=== PATIENT | male | born 1960 | race Caucasian/White ===

== ENCOUNTER 2016-12-27 05:32 | Day surgery (SDC) | payer MEDICARE ==
--- NOTE | 2016-12-26 12:14 | PCM.ANEPRE ---
Anesthesia Pre-Op Review Reason for Review: ANTONY +; STOP BANG 05/23 Anesthesia Recommendations: Proceed with Procedure Additional Comments pt scheduled for toe amputation with hx of DM, Renal insuffency, hx of A-fib,, ANTONY and mild Aortic stenosis. 05/23 stop bang and patient will not be getting his cpap machine until the . Consider ANTONY protocol. ultimate decision to proceed with low risk surgery per anesthesiologist. Max Lake MD Dec 26, 2016 12:14
[2016-12-27] VITALS (18 sets, daily range): BP systolic 109–176; BP diastolic 65–103; PULSE 57–142; RESP 17–26; O2SAT 90–98
[~2016-12-27] VITALS: Ht 175.3 cm; Wt 127.6 kg
[~2016-12-27 05:32] MED LIST: ALBU8.5H2 IH; ASPI-973 PO; CYA1000I IM; DOXY100T2 PO; HYDR-4003 PO; LIP40 PO; LISI1TAB11 PO; METF1000 PO
[2016-12-27] MEDS ORDERED: Lactated Ringer's 1,000 ML IV ONE ×3 (05:36→09:45)
[2016-12-27] MEDS ORDERED: CeFAZolin Inj 3 GM in IV Premix 1 EACH IV ONE (06:00)
--- NOTE | 2016-12-27 07:20 | PCM.HPANE ---
Patient Data Date of Service: Dec 27, 2016 Surgeon Admitting Provider: Attending Provider:Tierney Caban DPM Primary Care Physician:Other,Physician Other Provider:Tae Doty Anesthesia Reason for Visit Chronic Ulcer With Hallux Deformities Right Foot Ht/WT & BMI Height (Feet): 5 Height (Inches): 9 Weight (Kilograms): 127.6 Body Mass Index 41.00 Allergies Coded Allergies: No Known Allergies (Verified Allergy, Unknown, 12/23/16) Past Anesthesia History Anesthesia History: Positive for:: Anesthesia Reactions (COLONOSCOPY- HAD TO BE AWAKENED MID-PROCEDURE ??RESP. PROBLEM??), Denies:: Malignant Hyperthermia Diabetes History Hx Diabetes?: Yes Type of Diabetes: Type II Glycemic Control: Oral Medication Current Bedside Blood Glucose: 100 MRSA MRSA: No Medications Blood Thinner: Aspirin Last Dose Blood Thinner: Dec 22, 2016 Hypertension Medication: Yes (LISINOPRIL/HCTZ) Home Meds Incl Beta Nessa: No Reported Medications Doxycycline Hyclate 100 Mg [id number] Mg PO DAILY START 12/27/16 12/23/16 Hydrocodone-Acetaminophen 5-325 mg 1 Each Tablet1-2 Tablet PO Q6H PRN For Pain Ref 0 POSTOP 12/23/16 Cyanocobalamin (Cyanocobalamin Injection)1,000 Mcg/1 Ml Vial1,000 Mcg IM Q4 WEEKS 12/23/16 Aspirin 81 Mg [id number] Mg PO DAILY Ref 0 12/23/16 Metformin (Glucophage)1,000 Mg Tablet1,000 Mg PO BID Ref 0 12/23/16 Albuterol HFA (Proair HFA)8.5 Gm Hfa.aer.ad2 Puffs IH Q6 PRN For Shortness of Breath #1 INHALER 09/12/14 Lisinopril / HCTZ 20-25 mg 1 Each Tablet1 Each PO BID 30 Days Ref 0 09/12/14 Atorvastatin (Lipitor)40 Mg Fciouv01 Mg PO DAILYWD 30 Days Ref 0 09/12/14 Discontinued Reported Medications Metformin 1,000 Mg Tablet1,000 Mg PO DAILYWM 30 Days Ref 0 09/12/14 Levofloxacin 500 Mg [id number] Mg PO Q24 10 Days 09/12/14 Sitagliptin Phos (Januvia)100 Mg Pxsrrg028 Mg PO QPM 30 Days Ref 0 09/12/14 History History of ENT Problems?: Yes HEENT History: Positive for:: Dysphagia (S/P EGD W/ BALLOON DILATION FOR STRICTURE) Hx of Heart Problems?: Yes Cardiovascular History: Positive for:: Atrial Fibrillation (02/2016-found incidentally-converted spontaneously w/o drugs) Heart Murmur (PCP REPORTED ECHO 04/2016 WNL EXCEPT FOR MILD ) Hypertension (HYPERLIPIDEMIA) Valvular Heart Disease (MILD ) Denies:: Cardiac Surgery Chest Pain Congestive Heart Failure Edema Irregular Heartbeat Pacemaker Thrombophlebitis Hx of Respiratory Problem?: Yes Respiratory History: Positive for:: Asthma (MILD INTERMITTANT) Use of C-PAP Machine (ANTONY+ RECENT SLEEP STUDY CPAP TRIAL SCHEDULED FOR ) Use of Inhalers / NEBS Denies:: Pneumonia Other History/Comment smoker Hx Neurologic Problems?: Yes Other Neurological Pertinent: DIABETIC/PERIPHERAL NEUROPATHY Hx of GI Problems?: No Hx of Problems?: Yes Genitourinary History: Denies:: HX of Hemodialysis (HX CHRONIC RENAL INSUFFICIENCY) Male Hx: Denies:: Prostate Problems Scrotal Mass Testicular Surgery Skin History: Positive for:: Pressure Ulcers (CHRONIC ULCER W/ HALLUX DEFORMITY RT FOOT=CURRENT PROBLEM) Denies:: History Skin Disorders? (ONYCHODYSTROPHY LT GTRAT TOE ULCER- HEALING) Hx Musculoskeletal Problems?: Yes Musculoskeletal History: Positive for:: Musculoskeletal Trauma (S/P AMP RT 2ND TOE,RT GREAT TOE DEBRIDEMENT,DUPUYTREN'S RELEASE LT HAND) Hx of Psycho/Social Problems?: No Psycho Social History: Denies:: Anxiety Bipolar Disorder Hx Depression Suicide Attempt Hx Any Other Health Problems?: Yes Other History: Positive for:: Hospitalization (CELLULITIS) Denies:: Cancer Endocrine Disease Thyroid Disease History Blood Transfusions: Denies:: Blood Transfusions Hx Diabetes: YesBedside Blood Glucose: 100 Hx Alcohol Use: No (QUIT 2010)Hx Substance Use: No Smoking Status: Current Every Day Smoker Have You Smoked inLast 12 mo: YesApprox How Many Cigarettes/day: 1/2 PPD X 30YRS Stop/Bang S-Snoring: Do You Snore Loudly: Yes T-Tired: feel tired, fatigued: Yes O-Obsered: Observed not breath: Yes P-Blood Pressure: treated: Yes B- Body Mass Index > 35 kg/m2: Yes A- Age over 50: Yes N- Neck Large Circumference: Yes G- Gender Male: Yes ANTONY Total Score: 8 Risk Assessment Category Category 1A: Patient has history of documented sleep apnea, and HAS NOT received any narcotic, sedative or anesthesia administration during this stay. Category 1B: Patient has history of documented sleep apnea, and HAS received any narcotic , sedative or anesthesia administration during this stay Category 2: Patient has SUSPECTED Obstructive Sleep Apnea, and HAS received any narcotic , sedative or anesthesia administration during this stay. Category 3: Patient has SUSPECTED Obstructive Sleep Apnea and HAS NOT received narcotic, sedative or anesthesia administration during this stay. Category 4: Outpatient in Procedural Areas with known sleep apnea or who screen positive for High Risk via the STOP/BANG questionnaire. Exam Exam Vital Signs Vital Signs Date Time Temp Pulse Resp B/P Pulse Ox O2 Delivery O2 Flow Rate FiO2 12/27/16 06:10 35.6 67 20 136/86 93 Room Air General Appearance: Alert, Oriented X3 HEENT/AIRWAY: MP 3 Lungs: Clear to Auscultation Heart: Regular Rate/Rhythm, Murmur (2/6 HUAN) Meds/Labs/Diagnostics Admission Meds Current Medications Lactated Ringer's (Lr) 1,000 ml @ ud STK-MED ONCE IV Last administered on 12/27t 05:36; Start 12/27/16 at 05:36; Stop 12/27/16 at 05:37; Status DC Bedside Blood Glucose: 100 Plan Impression Patient chart reviewed, patient interviewed and anesthestic plan with risks, benefits, and alternatives discussed, and informed consent obtained. NPO Status: 1700 12/26/16 ASA Physical Status: ASA3 Severe Disease Anesthetic Plan: MAC Bene/Risks/Altern/Consents: Yes HP Complete Prior to Induction: Yes Jordy Cuevas MD Dec 27, 2016 07:20
[2016-12-27] MEDS ORDERED: Lactated Ringer's 500 ML IV PRN (07:21)
[2016-12-27] MEDS ORDERED: Lactated Ringer's 1,000 ML IV SCH (07:21)
[2016-12-27] MEDS ORDERED: HYDROmorphone 1 mg/mL Inj IVPUSH PRN (07:25)
[2016-12-27] MEDS ORDERED: Atropine 0.4 mg/mL Inj IVPUSH PRN (07:25)
[2016-12-27] MEDS ORDERED: hydrALAZINE 20 mg/mL Inj IVPUSH PRN (07:25)
[2016-12-27] MEDS ORDERED: Labetalol 5 mg/mL 4 mL Inj IV PRN (07:25)
[2016-12-27] MEDS ORDERED: MetoCLOpramide 5 mg/mL 2 mL Inj IVPUSH PRN (07:25)
[2016-12-27] MEDS ORDERED: Phenylephrine 10,000 mCg/mL Inj IVPUSH PRN (07:25)
[2016-12-27] MEDS ORDERED: EPHEDrine Sulfate 50 mg/mL Inj IVPUSH PRN (07:25)
[2016-12-27] MEDS ORDERED: Ondansetron 2 mg/mL 2 mL Inj IVPUSH PRN ×2 (07:25→10:40)
[2016-12-27] MEDS ORDERED: fentaNYL-PF 50 mCg/mL 2 mL Inj IVPUSH PRN (07:25)
[2016-12-27] MEDS ORDERED: MeTOProlol 1 mg/mL 5 mL Inj ONE (08:02)
--- NOTE | 2016-12-27 08:58 | PCM.ANEPRE ---
Anesthesia Pre-Op Review Reason for Review: Case cancelled in OR prior to start Anesthesia Recommendations: Proceed with Procedure Additional Comments 56y/o M with history of atrial fibrillation (unknown whether paroxysmal versus permanent), morbid obesity, DM2, probable ANTONY that was to have R great toe amputation for chronic ulcer today. This was cancelled in the OR before surgery was started secondary to atrial fibrillation with rapid ventricular response. After self transferring to the OR bed from the [facility] the patient was hooked up to the monitor which showed A-fib rate 140s. The patient reports that he used albuterol just prior to the OR, he had also used albuterol 30 minutes prior to this. I believe the combination of the B2 agonist along with self transferring in this morbidly obese patient kicked him into a-fib RVR. His pre-op vitals were not notable for elevated HR, a telemetry strip was not printed pre-op, but on my assessment he had a regular rhythm with HR 70s. He does not take any AV- cornelia blockers. In the OR, he was beta-blocked with metoprolol 5mg increments to total of 15mg IV. This failed to achieve rate or rhythm control. He remained normo to hypertensive with no chest pain, dyspnea, or light headedness. ECG showed A-fib rate 140s with no ST segment abnormalities. Labs are pending. I spoke with the admitting hospitalist for the yellow team to consider admission for rate control. At 915 I was notified that the patient converted to sinus rhythm 50s-60s. Dr. Caban spoke with his sister, and it sounds as if the patient excessively uses albuterol for "shortness of breath". I question whether he has had PFTs to demonstrate that he has a reversible component of airflow obstruction to merit its use though he is a half-way active smoker, surely it's utility should be weighed against it being a potential trigger for this arrhythmia. He demonstrated that he does not wheeze with IV beta blockade, so I question whether he should be betablocked at baseline, his degree of hypertension suggests that he could tolerate it. Jordy Erwin MD Dec 27, 2016 08:58
[2016-12-27 09:05] LABS: BASOPHILS % (AUTO) 0.6 % (0-3); EOSINOPHILS % (AUTO) 4.5 % (0-5); MONOCYTES % (AUTO) 8.7 % (4-12); Mean Corpuscular Hemoglobin 31.3 pg (27.0-35.0); Mean Corpuscular Volume 96.3 fL (81-100); NEUTROPHILS % (AUTO) 65.6 % (40-74); Platelet Count 143 bil/L (150-400)
--- NOTE | 2016-12-27 09:21 | PCM.ANEP1 ---
Post Anesthesia Phase 1 PACU Phase 1 Assessment Date of Service: Dec 27, 2016 Vital Signs Vital Signs Date Time Temp Pulse Resp B/P Pulse Ox O2 Delivery O2 Flow Rate FiO2 12/27/16 08:45 76 22 131/87 98 Simple Mask 8 12/27/16 08:35 74 17 109/85 96 Simple Mask 8 12/27/16 08:30 82 19 139/103 97 Simple Mask 8 12/27/16 08:20 88 24 143/100 98 Simple Mask 8 12/27/16 08:11 141 24 122/101 98 Simple Mask 8 12/27/16 08:10 141 26 122/101 98 Simple Mask 8 12/27/16 08:05 142 18 149/98 98 Simple Mask 8 12/27/16 08:03 36.6 130 22 148/98 98 Simple Mask 8 12/27/16 06:10 35.6 67 20 136/86 93 Room Air Level of Alertness: Awake, talking ZEPEDA's with Equal Strength: Yes Pain: No Nausea or Vomiting: No Oxygen Delivery: Nasal Cannula Lungs: Clear to Auscultation Jordy Cuevas MD Dec 27, 2016 09:21
--- NOTE | 2016-12-27 09:21 | PCM.ANEP2 ---
Post Anesthesia Evaluation ASA/CMS Post Anesthesia Date of Service: Dec 27, 2016 VS in Patient's Normal Range?: Yes Resp Stable; Airway Patent?: Yes CV Function & Hydration Stable: Yes Mental Status Recovered?: Yes Pain control Satisfactory?: Yes N/V Control Satisfactory?: Yes Jordy Cuevas MD Dec 27, 2016 09:21
[2016-12-27 10:12] LABS: Creatine Kinase 118 U/L (21-232); Magnesium 1.3 mg/dL (1.6-2.6); TROPONIN T < 0.010 ug/L (0.0-0.011)
[2016-12-27] MEDS ORDERED: Polyethylene Glycol (PEG) 17 Gm Powder PO PRN (10:40)
[2016-12-27] MEDS ORDERED: Alum-Mag Hydrox-Simeth 30 mL Suspension PO PRN (10:40)
[2016-12-27] MEDS ORDERED: Heparin 5,000 Unit/mL Inj SUBQ SCH (10:40)
--- NOTE | 2017-01-23 08:38 | PCM.PROC ---
Procedure Note Date of Service: Dec 27, 2016 Pre Procedure Diagnosis: Chronic osteomyelitis, right hallux. Post Procedure Diagnosis: No procedure Procedure: No procedure Provider and Ethyl Blender: Tierney Caban D.P.M. Indication for Procedure: Chronic ulcerating osteomyelitis, right hallux. Findings: Patient experience refractory atrial fibrillation prior to sedation being initiated. It seemed to coincide with the use of his inhaler, but did not resolve prior to case start and the procedure was aborted. The patient was discharged later in the day to follow up with his manager latin. Post Procedure Plan: Although cardiology clearance was obtained prior to the procedure, it appears that the patient is overusing his inhaler and causing atrial fibrillation. It is important to get this issue resolved prior to attempting this procedure again. Tierney Caban DPM Jan 23, 2017 08:38
== END 2016-12-27 23:59 | disposition home or self-care (01) ==
LOC: SAS 05:32
PROVIDERS: ATTEND Podiatrist
DX: M86.671 Other chronic osteomyelitis, right ankle and foot (principal); Z53.09 Procedure and treatment not carried out because of other contraindication; I48.92 Unspecified atrial flutter; L97.514 Non-pressure chronic ulcer of other part of right foot with necrosis of bone; M20.61 Acquired deformities of toe(s), unspecified, right foot; E11.9 Type 2 diabetes mellitus without complications; Z79.84 Long term (current) use of oral hypoglycemic drugs; J45.20 Mild intermittent asthma, uncomplicated
CPT/HCPCS: 28825; 36415; 80048; 82040; 82247; 82306; 82550; 82553; 83735; 83880; 84080; 84439; 84443; 84450; 84460; 84484; 85025; 93005; J7120

== ENCOUNTER → 2017-05-02 | Day surgery (SDC) | payer MEDICARE ==
[~2017-05-02] VITALS: Ht 175.3 cm; Wt 126.3 kg
[~2017-05-02] MED LIST changes: -ALBU8.5H2 IH; +ALBU8.5H2 INHALATION; -ASPI-973 PO; -CYA1000I IM; +CeFAZolin Inj 3 GM in IV Premix 1 EACH IV ONE; +DOXY100C2 PO; -DOXY100T2 PO; +Dexamethasone 4 mg/mL Inj IVPUSH PRN; +EPHEDrine Sulfate 50 mg/mL Inj IVPUSH PRN; +Esmolol 10,000 mCg/mL 10 mL Inj ONE; +HYDROmorphone 1 mg/mL Inj IVPUSH PRN; -LIP40 PO; +LISI10TA PO; -LISI1TAB11 PO; +LOVA40TA PO; +Lactated Ringer's 1,000 ML IV SCH; +Lactated Ringer's 500 ML IV PRN; +Lidocaine 1%-Epi 1:100,000 20 mL Inj NERVEBLOCK ONE; +Lidocaine PF 1% 30 mL Inj INJ ONE; +METO25TA6 PO; +MetoCLOpramide 5 mg/mL 2 mL Inj IVPUSH PRN; +Ondansetron 2 mg/mL 2 mL Inj IVPUSH PRN; +Phenylephrine 10,000 mCg/mL Inj IVPUSH PRN; +fentaNYL-PF 50 mCg/mL 2 mL Inj IVPUSH PRN; +fentaNYL-PF 50 mCg/mL 2 mL Inj ONE; +oxyCODONE-Acetamin 5-325 mg Tablet PO PRN
[2017-05-02] MEDS: Lactated Ringer's 1,000 ML IV SCH ×2 (05:42→09:04)
[2017-05-02 07:37] VITALS: BP 125/79; PULSE 95; RESP 18; O2SAT 95
--- NOTE | 2017-05-02 08:13 | PCM.HPANE ---
Patient Data Date of Service: May 02, 2017 Surgeon Admitting Provider: Attending Provider:Tierney Caban DPM Primary Care Physician:Wilma Other Provider:Tae Doty Anesthesia Reason for Visit Chronic Ulcer Of Great Toe Of Right Foot Ht/WT & BMI Height (Feet): 5 Height (Inches): 9.00 Weight (Kilograms): 126.3 Body Mass Index 41.00 Allergies Coded Allergies: No Known Allergies (Verified Allergy, Unknown, 12/23/16) Past Anesthesia History Anesthesia History: Positive for:: Anesthesia Reactions (sedation for colonoscopy), Denies:: Abnormal Airway, Difficult Intubation, Malignant Hyperthermia Diabetes History Hx Diabetes?: Yes Type of Diabetes: Type II Glycemic Control: Oral Medication Current Bedside Blood Glucose: 132 MRSA MRSA: No Medications Blood Thinner: Aspirin Hypertension Medication: Yes Home Meds Incl Beta Nessa: Yes (Metoprolol 25mg) Date Beta Nessa Taken: May 02, 2017 Time Beta Nessa Taken: 0600 Previous Beta Nessa Dose >24: Previous Dose <24 Hours Reported Medications Metoprolol Tartrate 25 Mg Qypawt07 Mg PO DAILY 30 Days Ref 0 04/26/17 Metformin (Glucophage)1,000 Mg Tablet1,000 Mg PO BID Ref 0 04/25/17 Lovastatin 40 Mg Dlvqtw70 Mg PO HS #30 TABLET Ref 0 04/25/17 Lisinopril 10 Mg Jqazjt33 Mg PO DAILY 30 Days Ref 0 04/25/17 Hydrocodone-Acetaminophen 5-325 mg 1 Each Tablet1-2 Tablet PO Q6H PRN For Pain Ref 0 04/25/17 Doxycycline Hyclate 100 Mg Ivshyxl706 Mg PO DAILY 04/25/17 Albuterol HFA (Proair HFA)8.5 Gm Hfa.aer.ad2 Puffs INHALATION Q4H PRN For Shortness of Breath #1 INHALER 04/25/17 Discontinued Reported Medications [metoprolol] No Conflict Check25 Mg DAILY 04/26/17 Doxycycline Hyclate 100 Mg Khunpg821 Mg PO DAILY START 12/27/16 12/23/16 Hydrocodone-Acetaminophen 5-325 mg 1 Each Tablet1-2 Tablet PO Q6H PRN For Pain Ref 0 POSTOP 12/23/16 Cyanocobalamin (Cyanocobalamin Injection)1,000 Mcg/1 Ml Vial1,000 Mcg IM Q4 WEEKS 12/23/16 Aspirin 81 Mg Zukrrc16 Mg PO DAILY Ref 0 12/23/16 Metformin (Glucophage)1,000 Mg Tablet1,000 Mg PO BID Ref 0 12/23/16 Albuterol HFA (Proair HFA)8.5 Gm Hfa.aer.ad2 Puffs IH Q6 PRN For Shortness of Breath #1 INHALER 09/12/14 Lisinopril / HCTZ 20-25 mg 1 Each Tablet1 Each PO BID 30 Days Ref 0 09/12/14 Atorvastatin (Lipitor)40 Mg Fjngyw13 Mg PO DAILYWD 30 Days Ref 0 09/12/14 History History of ENT Problems?: Yes HEENT History: Positive for:: Dysphagia (hx of esoph stricture with balloon dilatation-resolved) Denies:: Abnormal Airway Cataracts Difficult Intubation Glaucoma Hearing Problem Sinus Problem TMJ Denture Type: None Teeth Condition: Missing Teeth (all upper) Hx of Heart Problems?: Yes Cardiovascular History: Positive for:: Atrial Fibrillation (02/2016-found incidentally-converted spontaneously w/o drugs, denies symptoms) Heart Murmur (PCP REPORTED ECHO 04/2016 WNL EXCEPT FOR MILD ) Hypertension Valvular Heart Disease (MILD ) Denies:: Cardiac Surgery Chest Pain Congestive Heart Failure Edema Irregular Heartbeat Pacemaker Thrombophlebitis Hx of Respiratory Problem?: Yes Respiratory History: Positive for:: Asthma (mild, intermittent) Use of C-PAP Machine Use of Inhalers / NEBS Denies:: COPD Oxygen Administration Pneumonia Tuberculosis Hx Neurologic Problems?: Yes Neurological History: Denies:: CVA Dizziness Headaches Multiple Sclerosis Parkinson's Disease Seizures TIA 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 Hx Musculoskeletal Problems?: Yes Musculoskeletal History: Positive for:: Musculoskeletal Trauma (chronic diabetic ulcers current admission problem) Denies:: Degenerative Joint Fibromyalgia Joint Replacement Myasthenia Gravis Osteoarthritis Rheumatoid Arthritis Systemic Lupus Hx of Psycho/Social Problems?: No Psycho Social History: Denies:: Anxiety Bipolar Disorder Hx Depression Suicide Attempt Hx Surgeries?: Yes (Rt toe 2nd amputation,RT GREAT TOE DEBRIDEMENT,LT HAND DUPUYTRENS RELEASE,E) Hx Any Other Health Problems?: Yes Other History: Positive for:: Hospitalization (CELLULITIS) Denies:: Cancer Endocrine Disease Thyroid Disease History Blood Transfusions: Positive for:: Accept Blood Products? Denies:: Blood Transfusions Hx Diabetes: YesBedside Blood Glucose: 132 Hx Alcohol Use: No (former)Hx Substance Use: No Smoking Status: Current Every Day Smoker Have You Smoked inLast 12 mo: Yes (1/2 pack ) Stop/Bang Treated for Sleep Apnea?: Yes Do You Have a CPAP Machine?: Yes P-Blood Pressure: treated: Yes B- Body Mass Index > 35 kg/m2: Yes A- Age over 50: Yes N- Neck Large Circumference: Yes G- Gender Male: Yes ANTONY Risk Assessment: High Risk, =/>3 Yes Risk Assessment Category Category 1A: Patient has history of documented sleep apnea, and HAS NOT received any narcotic, sedative or anesthesia administration during this stay. Category 1B: Patient has history of documented sleep apnea, and HAS received any narcotic , sedative or anesthesia administration during this stay Category 2: Patient has SUSPECTED Obstructive Sleep Apnea, and HAS received any narcotic , sedative or anesthesia administration during this stay. Category 3: Patient has SUSPECTED Obstructive Sleep Apnea and HAS NOT received narcotic, sedative or anesthesia administration during this stay. Category 4: Outpatient in Procedural Areas with known sleep apnea or who screen positive for High Risk via the STOP/BANG questionnaire. Exam Exam Vital Signs Vital Signs Date Time Temp Pulse Resp B/P Pulse Ox O2 Delivery O2 Flow Rate FiO2 05/02/17 07:41 CPAP/BIPAP 05/02/17 07:37 36.2 95 18 125/79 95 Room Air General Appearance: Alert, Oriented X3, Mild Distress (anxious) HEENT/AIRWAY: MP 3, Other (thick neck, no upper teeth) Lungs: Clear to Auscultation Heart: Regular Rate/Rhythm, No Murmurs/Rubs/Gallops Meds/Labs/Diagnostics Admission Meds Current Medications Lactated Ringer's (Lr) 1,000 ml @ 120 mls/hr Q8H20M IV Last administered on t 05:42; Start 05/02/17 at 05:00; Stop 05/02/17 at 13:19 Bedside Blood Glucose: 132 Plan Impression Patient chart reviewed, patient interviewed and anesthestic plan with risks, benefits, and alternatives discussed, and informed consent obtained. Walker Martin DO May 02, 2017 08:13
[2017-05-02 09:55] VITALS: BP 113/81; PULSE 152; RESP 16; O2SAT 93
--- NOTE | 2017-05-02 10:15 | PCM.PODPO ---
Podiatry Operative Report Date of Service: May 02, 2017 Date of Service May 02, 2017 Pre Operative Diagnosis Chronic ulceration, right great toe, with underlying chronic osteomyelitis. Chronic ulceration, left great toe, with flexor contracture. Post Operative Diagnosis Chronic ulceration, right great toe, with underlying chronic osteomyelitis. Chronic ulceration, left great toe, with flexor contracture. Procedure Amputation of the right great toe at the base of the proximal phalanx. Excision of ulceration, left great toe, through skin and subcutaneous tissue. Flexor tenotomy, left great toe. Surgeon Surgeon: Tierney Caban DPM Assistants: None Indication for Procedure Chronic ulcerations with recurrent infection, limb threatening. Findings Healthy-appearing bone at the level of the amputation, right great toe. Incomplete resolution of contracture after flexor tenotomy, left great toe. No bone exposed after excisional debridement of the left great toe ulceration. Details of Procedure The patient was identified in the preoperative holding area and brought back to the operating room. He was placed on the operating table in supine position. IV sedation was initiated. The timeout protocol was completed. Both feet were prepped and draped in usual aseptic manner, using Betadine for prep. An incision was made proximal to the existing ulceration on the right great toe from skin to bone in a circumferential manner, fishmouth configuration. A saw blade was used to transect the bone from dorsal distal to proximal plantar across the base of the first phalanx. Bleeding was active and tissue appeared healthy. The distal portion of the toe was passed off the table for pathology. The wound was irrigated, reconfigured using scissors and forceps to allow the skin to be coapted. Using 3-0 Prolene, the fishmouth incision was closed systematically, using vertical and simple sutures. The left great toe medial ulceration measuring 0.6 x 0.2 cm in size and 0.2 cm in depth was excised through skin and subcutaneous tissue with a #15 scalpel, yielding a post debridement measurement of 1 cm x 0.5 cm in size and 0.4 cm in depth. The base was appearing healthy after debridement. The plantar contracture of the flexor hallucis longus tendon was percutaneously released with a #15 scalpel through the crease of the toe plantarly. Some necrotic skin was removed in the process. Irrigation was performed with normal saline and both incisional areas dressed with Ryan silk, saline moistened gauze, Kerlix, and Coban. The patient was weaned off of sedation and taken to the day surgery room for a 12- lead EKG, due to RVR throughout the procedure. Grafts, Implants: None Complications There were no periprocedural complications identified. Condition Stable Anesthetic Administered: MAC Drains: None Catheters: None Output, Estimated Blood Loss: 15 (ml) Blood Admin during surgery: No Surgical Cast or Splint: Post-op Boot Surgical Specimen Removed: Yes Specimen sent to Pathology: Yes Surgical Specimen description: Distal right great toe for histopathology. Post Operative Plan The patient was advised to stay off of his feet as much as possible. He is to ambulate using a walker, postoperative shoes bilaterally, only for minimal needs at home. He has some assistance for ADLs and we will have to depend on family to help with that. His family members that were present today expressed that he had everything ready for him and set up so that he should not have to walk except to go to the bathroom. Postoperative appointment is in one week. He needs to keep his dressing in place until he follows up with me in 1 week. Instructions were given to the patient and his family to keep the dressing intact. After the procedure the patient had a skin indentation from a rubber perforation in the draping. This was rechecked twice and found to be rebounding adequately without any sequela to the skin. Tierney Caban DPM May 02, 2017 10:15
[2017-05-02 10:20] VITALS: BP 102/81; PULSE 118; RESP 16; O2SAT 94
--- NOTE | 2017-05-02 10:53 | PCM.ANEP1 ---
Post Anesthesia PACU Phase 1 Assessment Vital Signs Vital Signs Date Time Temp Pulse Resp B/P Pulse Ox O2 Delivery O2 Flow Rate FiO2 05/02/17 07:41 CPAP/BIPAP 05/02/17 07:37 36.2 95 18 125/79 95 Room Air Anesthetic Administered: MAC Level of Alertness: Awake, talking Pain: No Nausea or Vomiting: No CV Function & Hydration Stable: Yes Airway Device: Oxygen Delivery: Room Air Lungs: Clear to Auscultation Summary Pt was found to be in Afib with RVR to 140's on arrival to OR. Asymptomatic, BP stable. The decision was made to proceed given the semi-elective nature, low risk, and short duration of the planned procedure. Also, the patient had no sensation at the surgical site, so only minimal sedation was given. Pt tolerated the procedure well, and reported that he was "very comfortable" throughout. His ventricular rate was refractory to esmolol (total 100mg). Post -op ECG showed no ST/T wave abnormalities and the patient denied any CP/SOB. The patient declined further evaluation or consultation, and reported that he was planning on seeing his PCP and his school program director for further management of his Afib, explaining that it was ongoing. The importance of follow-up was stressed, and that should he feel unexplained CP/SOB, that he should seek medical attention. PACU Phase 2 Assessment Complications: No Follow up Care: Yes (pt to f/u with PCP, school program director) Patient Instructions Provided: Yes Walker Martin DO May 02, 2017 10:52
--- NOTE | 2017-05-08 14:29 | PATH ---
SURGICAL PATHOLOGY Attending Physician:Tierney Caban CASE STATUS: Signed Out PATIENT NAME: BRANDEN MASTERS PID: [id number] : 1960 DATE COLLECTED:05/02/2017 17:32 SPECIMEN: Toe(s), Amputation, Non-Traumatic CLINICAL HISTORY: CHRONIC ULCER RIGHT GREAT TOE 1). RIGHT GREAT TOE FINAL DIAGNOSIS: 1.RIGHT GREAT TOE, AMPUTATION: TOE WITH ULCER EXTENDING TO DEEP DERMIS. NO EVIDENCE OF OSTEOMYELITIS. SKIN AND SOFT TISSUE MARGINS NEGATIVE FOR ACTIVE INFLAMMATION. ICD10 Z89.411 GROSS DESCRIPTION: The specimen is received in formalin, labeled with the patient's name, sublabeled as right great toe, and consists of a resected toe (5.4 cm AP, 2.4 cm SI, 2.8 cm and mild). The toenail is present. An open ulcer (1.1 x 0.2 cm) involving the medial posteroinferior aspect is 1.8 cm from the superior and 0.5 cm from the inferior skin and soft tissue resection margins. The surrounding skin and soft tissue is reed-yellow thick and focally hard. The underlying bone is hard and cannot be sliced with a scalpel. The bone cut surface is reed-white and unremarkable. Ink code: black- superior; orange-inferior; purple-resection margin. Section code: (A) skin and soft tissue resection margins; (B) bone resection margin; (C) ulcer, renewals representative; (D) bone underlying ulcer, serially sectioned, renewals representative. Note: The bone sections had been decalcified. 05/03/17 JM MICRO DESCRIPTION: See diagnosis. ICD-9 CODES: CPT CODES: 1: 62427 Electronically Signed Out Dewayne Blanchard MD, Ph.D. [facility] [address], [place] [address] Technical component performed at [facility], [address] [place] [address] [address], [place], [address]
== END | disposition home or self-care (01) ==
LOC: SAS 07:06
PROVIDERS: ATTEND Podiatrist
DX: L97.514 Non-pressure chronic ulcer of other part of right foot with necrosis of bone (principal); L97.522 Non-pressure chronic ulcer of other part of left foot with fat layer exposed; E11.9 Type 2 diabetes mellitus without complications; I10 Essential (primary) hypertension; R13.10 Dysphagia, unspecified; I48.91 Unspecified atrial fibrillation; J45.909 Unspecified asthma, uncomplicated; F17.210 Nicotine dependence, cigarettes, uncomplicated; Z79.899 Other long term (current) drug therapy; Z79.82 Long term (current) use of aspirin; Z79.84 Long term (current) use of oral hypoglycemic drugs
CPT/HCPCS: 28232; 28810; 93005; J0690; J2250; J3010; J7120